=== PATIENT | male | born 1990 | race Caucasian/White ===

== ENCOUNTER 2017-03-21 06:46 | Day surgery (SDC) | payer OTHER ==
--- NOTE | 2017-03-08 16:10 | HP ---
Amended report to enter cosigning doctor. PREOPERATIVE HISTORY AND PHYSICAL: DATE OF ADMISSION/SURGERY: 03/21/17 DATE OF OFFICE VISIT: 03/08/17 ATTENDING SURGEON: Sherie Mendoza MD* (dictated by KRISTA Fabian). PROCEDURES: Right knee anterior cruciate ligament reconstruction, possible meniscus repair, bone-patellar tendon-bone autograft. CHIEF COMPLAINT: Right knee pain and instability. HISTORY OF PRESENT ILLNESS: Tom is a 26-year-old male who presents to the clinic for right knee pain and instability. He has had a prior ACL reconstruction and partial meniscectomy. The patient states he continues to have pain and instability that effects his daily activity. He also has catching and locking. He has failed conservative measures and therefore agreed to undergo right knee anterior cruciate ligament reconstruction, possible meniscus repair, bone-patellar tendon-bone autograft. PAST MEDICAL HISTORY: No current problems. PAST SURGICAL HISTORY: 1. Right knee ACL surgery. 2. Right knee meniscectomy. MEDICATIONS: No active medications. ALLERGIES: No known drug allergies. FAMILY HISTORY: Positive for diabetes, hypertension, and breast cancer. SOCIAL HISTORY: He denies tobacco use. He reports occasional alcohol consumption. He is a PhD in Astronomy student. REVIEW OF SYSTEMS: A 14-point review of systems was reviewed with the patient. Positive for current complaint, otherwise negative. Denies fevers, chills, night sweats. Denies shortness of breath. Denies history of DVT or PE. Denies bleeding disorders. PHYSICAL EXAMINATION GENERAL: Well-developed, well-nourished 26-year-old male, in no acute distress. Alert and oriented x3. Appropriate mood and affect. VITALS: Height 62, weight 161. Blood pressure 108/70, respiratory rate 14, temperature 95.8. BMI 29.4. HEENT: Normocephalic, atraumatic. PERRLA. Throat clear. NECK: Supple. PULMONARY: Lungs are clear to auscultation bilaterally. No wheezing, rhonchi, or rales. CARDIO: Regular rate and rhythm. S1 and S2. No murmurs, gallops, or rubs. No edema. ABDOMEN: Positive bowel sounds. Soft, nontender. MUSCULOSKELETAL: Right lower extremity, skin is intact. No warmth or erythema. Mild effusion. Range of motion is 0 to 130. 2A Olesya. Tender medial joint line. Pain with deep flexion. Positive Winston. Stable varus and valgus stress. +2 dorsalis pedis pulse. Sensation is intact to light touch distally. NEURO: Alert and oriented x3. Cranial nerves grossly intact. Sensation is intact to light touch. STUDIES: MRI, medial meniscus tear, some lateral meniscus tear and ACL in a nonanatomic position. IMPRESSION: Anterior cruciate ligament sprain, medial meniscus tear, lateral meniscus tear. PLAN: The patient is scheduled to undergo a right knee anterior cruciate ligament reconstruction, possible meniscus repair, bone-patellar tendon-bone autograft with Dr. Mendoza on 03/21/17. He will follow up 8 days postop for followup and suture removal. Percocet was sent to his pharmacy for postop pain management. KRISTA FABIAN [id number]/[facility] #: [id number] KRISTY
[~2017-03-21 06:46] MED LIST: Buffered Lidocaine 0.9% SYRIN* 5 ML/SYR SYRINGE INTRADERM ONE; Famotidine IV* 10 MG/ML 2 ML (20 mg) IV ONE; Famotidine IV* 10 MG/ML 2 ML (20 mg) ONE
[2017-03-21] MEDS ORDERED: Bupivacaine 0.25% SDV* 30 ML ONE (06:53)
[2017-03-21] MEDS ORDERED: Lidocaine 1% MPF wEPI 200,000* 30 ML SDV ONE (06:54)
[2017-03-21] MEDS ORDERED: ceFAZolin 2 GM PREMIX (*) 50 ML IVPB ONE (07:09)
[2017-03-21] MEDS ORDERED: fentaNYL* 50 MCG/ML 2 ML VIAL (100 MCG VIAL) ONE ×3 (07:47→09:23)
[2017-03-21] MEDS ORDERED: Midazolam* 1 MG/ML 5 ML VIAL (5 MG) ONE (07:47)
[2017-03-21] MEDS ORDERED: Succinylcholine* 20 MG/ML 10 ML VIAL ONE (08:07)
[2017-03-21] MEDS ORDERED: Ondansetron INJ* 2 MG/ML VIAL ONE (08:07)
[2017-03-21] MEDS ORDERED: Propofol* 10 MG/ML 20 ML BTL IV PUSH ONE ×2 (08:07→10:58)
[2017-03-21] MEDS ORDERED: Ketorolac INJ* 30 MG/ML 1 ML VIAL ONE (08:07)
[2017-03-21] MEDS ORDERED: Dexamethasone IV* 4 MG/ML 1 ML (4 MG) ONE (08:07)
[2017-03-21] MEDS ORDERED: Lidocaine 2% PF * 5 ML VIAL ONE (08:07)
[2017-03-21] MEDS ORDERED: Acetaminophen TAB* 325 MG PO PRN (08:56)
[2017-03-21] MEDS ORDERED: DiMENhydriNATE IV* 50 MG/ML VIAL IV PUSH PRN (08:56)
[2017-03-21] MEDS ORDERED: HYDROmorphone INJ* 1 MG/ML CARPUJECT SYRINGE IV PRN (08:56)
[2017-03-21] MEDS ORDERED: oxyCODONE TAB* 5 MG TAB PO PRN (08:56)
[2017-03-21] MEDS ORDERED: HYDROmorphone INJ* 1 MG/ML CARPUJECT SYRINGE ONE ×2 (10:34→11:32)
[2017-03-21] MEDS ORDERED: oxyCODONE/Acetamin 5/325 MG* TAB ONE (11:32)
[2017-03-21 12:03] VITALS: BP 125/82
--- NOTE | 2017-03-22 02:17 | OP ---
DATE OF OPERATION: 03/21/17 [facility] DATE OF : [birth year] SURGEON: Sherie Mendoza MD EMERGENCY DEPARTMENT CLINICIAN: KRISTA Wu. An marketing support assistant was needed for the entirety of case to help with positioning, retraction, and was utilized throughout all portions of the case. ANESTHESIOLOGIST: Dr. Reza. ANESTHESIA: General. PRE-OP DIAGNOSIS: Right knee ACL insufficiency with medial meniscal tear. POSTOP DIAGNOSES: Right knee ACL insufficiency with medial meniscal tear, plica excision. OPERATIVE PROCEDURE: Right knee arthroscopy with: 1. Plica excision. 2. Partial medial meniscectomy and then meniscal rasping. 3. Revision ACL reconstruction with BTB autograft. 4. Removal of Kelly staple. 5. Removal of intraarticular foreign bodies. COMPLICATIONS: None. INDICATIONS: Tom Velazquez is a 26-year-old male who has followed with me for a little more than a year for his knee pain and instability. He initially was diagnosed with a medial meniscus tear. At that time, I told him his ACL was insufficient and this is why he had a meniscal tear. We did have a previous surgery where we did a meniscal repair, but he re-tore that. He is having persistent symptoms. I explained to him that his knee is, by definition, unstable, and he had a 2A Olesay. We talked about options including partial meniscectomy versus reconstruction of the ACL. He thought his options over and then decided to proceed with revision ACL. Risks and benefits were discussed in length and included, but not limited to bleeding, infection, damage to nerves , vessels, surrounding structures, wound nonhealing, persistent pain, need for surgery, scarring, stiffness, fracture, incomplete relief of symptoms, need for further surgery, risk of arthritis, DVT, and risk of anesthesia. DESCRIPTION OF PROCEDURE: The patient was greeted in the preoperative area by the attending surgeon. Correct extremity was marked and consent was confirmed. The patient was then brought back to the operating suite where he was placed in the supine position on the operating table. He then underwent general anesthesia with endotracheal intubation, after which the patient was positioned appropriately on the bed. The knee was placed in 90 degrees and a post was positioned, as well as the small 10-pound johnson bag. An unsterile tourniquet was placed high on the proximal thigh. The right leg was prepped and draped in the usual sterile fashion beginning with chlorhexidine soap, scrub, and alcohol wipe and a final prep with ChloraPrep. After appropriate surgical pause indicating site, side, procedure, and administration of antibiotics, the knee was intraarticularly injected with 1% lidocaine with epi. The Esmarch was used to exsanguinate the limb and the tourniquet was inflated to 250 mmHg. The midline incision, centered over the patellar tendon, was then made sharply with a 15-blade. Soft tissue was carefully dissected to protect and keep flaps for later closure. The paratenon was identified and sharply incised and again protected for later flap closure. The center third of the tendon was then harvested using 10 blade. The bone blocks were harvested using the sagittal saw and then loosened using a curved osteotome. The bone block along the femur was sized to be 9 x 25 mm and the femur was 10 x 30 mm. The graft was prepared on the back table by the attending surgeon using #5 Ethibond with a stay suture in the tibial aspect of the tendon. Meanwhile, the marketing support assistant closed the tendon with 0 Vicryl in an interrupted fashion. The graft was then wrapped in saline-soaked gauze and left on the back table. Attention was directed to the arthroscopy portion. A lateral portal was made in an outside-in fashion. The scope was brought into the joint. Joint was examined. The patellofemoral joint had grade 1 changes. The trochlea had grade 0 to 1 changes. The medial and lateral gutter were intact without any loose body. The scope was brought into the notch. The medial femoral condyle had evidence of fissuring that was apparent and a small amount of fraying. There was a moderate size plica. This was removed using the shaver and electrocautery device. The ACL graft was palpated and probed and found to be incompetent and in a non-anatomic position. The medial compartment was examined. The medial meniscus had an unstable tear. The previous repair was still intact, sutures were identified and this was a flap of tissue that was unstable. Lenny and biters were then used to debride this back. The meniscus was then probed posterior to this tear. There was a small amount of give, a decision was made to rasp this and not put a stitch as there was concern that the tissue quality may not be good. A small chondroplasty of the medial femoral condyle was done at this point to remove the unstable fraying. There was significant softening of the tibial surface. The attention was directed to lateral compartment, which was intact and the previous meniscectomy was evident and was not worsened. The scope was brought to the medial compartment and the medial meniscus was rasped using the meniscus rasp to allow for aggravation and scarring of the meniscus. Attention was directed to the notch. Previous ACL was then removed using biters and lenny. The tunnel was placed anterior and superior. Directly superior, there were FiberWire sutures that were present that were then removed for removal of foreign bodies. The sutures were then carefully removed so as to not cause any irritation nor to run free. The electrocautery device was used to expose and skeletonize the lateral femoral condyle. There was an irregular spur that was present. The sánchez was used to do a small notchplasty with care as this was very poor quality tissue and poor quality of bone. The bone appeared to be yellow also. After this was removed, the notch was visualized more carefully. The starting awl was used to kiya a director ship hole for reference point of where the final tunnel should be. The scope was positioned in the medial portal and visualized. The attention was directed to the tibial portion. The previous tibial graft was secured using a Kelly staple, which was in the path of the tunnel, and a decision was made to remove this. The osteotomes were gently used to free the staple and it was removed in its entirety from dense bone that was present. Once this was done, the tip-to- tip guide was placed at around 55 degrees and the appropriate tunnel was drilled again, this incorporated his previous tunnel. The graft had to be removed and any excess bone was saved for later bone grafting. The tunnel was then rasped and shaver was used to remove any of the previous hamstring graft that was present in that tunnel. Once the tunnel was completely clear and void, the carrot was used to prevent fluid egress and attention directed to the femoral tunnel. A Beath pin was then drilled through the center of the tunnel and the size 9 mm low-profile reamer was used to drill the tunnel to a depth of a 27 mm, all excess bony debris was removed. The tunnel was then notched using a plater helper. A #5 Ethibond suture was then passed through the end of the Beath pin in a retrograde fashion to the tibial tunnel. The graft was then brought to back table, then passed up carefully under the arthroscopic visualization and well-seated into the tunnel. There was concern that the lateral cortex had been violated and therefore, with careful tension placed on the suture and the nitinol wire, the size 7 x 25 mm screw was placed. We placed this carefully with excellent purchase and a good bite, with planning for backup fixation if need be. The knee was then taken to full extension. There was no evidence of impingement. The knee was then cycled 20 times, with no movement of the femoral tunnel and decision was made to not have to back it up. The images were taken in between any portion of the case, so that there was no concern about any loss of fixation of the tunnel. Knee was taken through full extension. There was a small cartilage bubble on the very medial aspect of the patella, which had grade 2 changes. A small chondroplasty was done of this using the shaver. The tibial tunnel was addressed and the nitinol wire was placed in the tunnel and a size 9 x 25 mm SoftSilk screw was used to secure this. This had a good purchase. Decision was to back this up over a post and washer. The Olesya was assessed and was found to be stable. The 3/2 drill bit was used to drill bicortically into the tibia. The appropriate length screw and washer were then placed, the sutures were then tied over with tension on the graft to allow for backup fixation of the tibial tunnel. The scope was brought back to the joint and the ACL was found to be in good position. Olesya was assessed again and found to be stable. The wounds were copiously irrigated and the excess bone was placed in patellar defect and oversewn with 0 Vicryl. The paratenon was closed with 2-0 Vicryl in running fashion. The skin was closed with layers of 2 -0 Vicryl and 3-0 Monocryl. Sterile dressings were applied. The knee was intra -articularly injected with 0.25% Marcaine plain and along the incisions. Cryo/ Cuff was placed as well as hinged knee brace with 0 to 90 degrees motion. He was awoken from anesthesia and transferred to PACU in stable condition. POSTOPERATIVE PLAN: He will be nonweightbearing for 4 weeks. He will be range of motion 0 to 90 degrees. He will start therapy at the end of the week. He will be discharged with pain medication, antibiotics, as well as aspirin. I will see the patient back in 6 to 8 days. [id number]/[facility] #: [id number] MTDD
--- NOTE | 2017-03-23 10:09 | RAD ---
INDICATION: Right knee. No other history is provided. COMPARISONS: MRI dated January 26, 2017 TECHNIQUE: Fluoroscopy was provided for a surgical procedure. Total fluoroscopy time is: 5 seconds FINDINGS: Spot images demonstrate post surgical change to the distal femur and proximal tibia IMPRESSION: FLUOROSCOPY WAS PROVIDED FOR A SURGICAL PROCEDURE CPT II Codes: 6045F
== END 2017-03-21 12:40 | disposition home or self-care (01) ==
LOC: OREAST 06:46
PROVIDERS: ATTEND Orthopaedic Surgery
DX: M23.51 Chronic instability of knee, right knee (principal); S83.511D Sprain of anterior cruciate ligament of right knee, subsequent encounter; M23.203 Derangement of unspecified medial meniscus due to old tear or injury, right knee; X58.XXXD Exposure to other specified factors, subsequent encounter; Y92.9 Unspecified place or not applicable
CPT/HCPCS: 76000; A9270-GY; C1713; C1776; J0330; J0690; J1100; J1170; J1885; J2001; J2250; J2405; J2704; J3010

== ENCOUNTER 2018-02-20 08:10 | Day surgery (SDC) | payer OTHER ==
[~2018-02-20 08:10] MED LIST changes: -Famotidine IV* 10 MG/ML 2 ML (20 mg) ONE; +Lidocaine 1% MPF wEPI 200,000* 30 ML SDV ONE; +ROPIVACAINE 5 MG/ML 30 ML BTL (0.5%) ONE
[2018-02-20] MEDS ORDERED: ceFAZolin 2 GM in NS PREMIX(*) 2 GM/100 ML BAG IVPB ONE (08:23)
[2018-02-20] MEDS ORDERED: Famotidine IV* 10 MG/ML 2 ML (20 mg) ONE (08:24)
[2018-02-20] MEDS ORDERED: Midazolam* 1 MG/ML 5 ML VIAL (5 MG) ONE (08:27)
[2018-02-20] MEDS ORDERED: fentaNYL* 50 MCG/ML 2 ML VIAL (100 MCG VIAL) ONE ×2 (08:27→09:14)
[2018-02-20] MEDS ORDERED: Ketorolac INJ* 30 MG/ML 1 ML VIAL ONE (09:14)
[2018-02-20] MEDS ORDERED: Ondansetron INJ* 2 MG/ML VIAL ONE (09:14)
[2018-02-20] MEDS ORDERED: Dexamethasone IV* 4 MG/ML 1 ML (4 MG) ONE (09:14)
[2018-02-20] MEDS ORDERED: Propofol* 10 MG/ML 20 ML BTL IV PUSH ONE (09:14)
[2018-02-20] MEDS ORDERED: Lidocaine 2% PF * 5 ML VIAL ONE (09:14)
[2018-02-20] MEDS ORDERED: DiMENhydriNATE IV* 50 MG/ML VIAL IV PUSH PRN (09:50)
[2018-02-20] MEDS ORDERED: Acetaminophen TAB* 325 MG PO PRN (09:50)
[2018-02-20] MEDS ORDERED: oxyCODONE TAB* 5 MG TAB PO PRN (09:50)
[2018-02-20] MEDS ORDERED: HYDROmorphone INJ1* 1 MG/ML SYRINGE IV PRN (09:50)
[2018-02-20] MEDS ORDERED: Naloxone* 0.4 MG/ML 1 ML VIAL IV PRN (09:50)
[2018-02-20 10:05] VITALS: BP 117/94
--- NOTE | 2018-02-20 11:50 | OP ---
CC: PCP OPERATIVE REPORT: DATE OF OPERATION: 02/20/18 DATE OF : [birth year] ATTENDING SURGEON: Sherie Mendoza MD GRAPHICS MANAGER: KRISTA Wu An assistant quality manager was needed for the entirety of the case to help with retraction and was utilized throughout all portions of the case. ANESTHESIOLOGIST: Shellie Reza MD ANESTHESIA: General. PRE-OP DIAGNOSIS: Right knee status post revision anterior cruciate ligament reconstruction with retained painful hardware. POST-OP DIAGNOSIS: Right knee status post revision anterior cruciate ligament reconstruction with retained painful hardware. OPERATIVE PROCEDURE: 1. Right knee arthroscopy with diagnostic arthroscopy with a partial lateral meniscectomy and intact ACL. 2. Open removal of hardware from anteromedial tibia. INDICATIONS: Tom Velazquez is a 27-year-old male, who underwent revision ACL reconstruction with partial medial meniscectomy. On 03/31/17, he was borderline compliant and had some issues with his knee. We are treating him conservatively. He is back to physical therapy. He felt like his knee was stable again. He does notice that whenever he runs, he has a lot of pain where the hardware was, as a backup fixation, for his tibial tunnel. We discussed the risks and benefits of surgery. Risks include but not limited to bleeding; infection; damage to nerves, vessels, surrounding structures; wound nonhealing; persistent pain; need for further surgery; scarring; stiffness; incomplete relief of symptoms; risk of anesthesia. COMPLICATIONS: None. ESTIMATED BLOOD LOSS: Minimal. TOURNIQUET TIME: 0 minutes. DESCRIPTION OF PROCEDURE: The patient was greeted in the preoperative area by the attending surgeon. Correct extremity was marked, consent was confirmed. The patient was brought back to the operating suite where he was placed in the supine position. He then underwent general anesthesia and LMA intubation. An unsterile tourniquet was placed high on the proximal thigh with lateral post positioned. The right leg was prepped and draped in the usual sterile fashion with a pre-scrub of chlorhexidine soap and alcohol wipe and a final prep with ChloraPrep. After appropriate surgical pause indicating site, side, procedure, and administration of antibiotics, the knee was intra-articularly injected with 1% lidocaine with epi. The anterolateral portal was made sharply with an 11 blade. Scope was introduced into the joint. Joint was examined. There was some fraying of the lateral femoral condyle and the patellofemoral joint was intact with grade 0 to 1 changes. Medial compartment had grade 0 to 1 changes and the medial meniscus had evidence of partial meniscectomy with no new changes. ACL was intact and the lateral compartment was examined. There were grade 1 and 2 changes to the lateral compartment. There was mild fraying of the lateral root of the meniscus, which was debrided back using the shaver. After the diagnostic portion was completed and the ACL was confirmed to be intact, attention was directed to the tibial screw. Through a separate incision over the previously placed incision over the anteromedial tibia, soft tissues were carefully dissected to expose the screw head, which was removed in its entirety. The washer was then also removed. The suture knots were then cut out and removed so that there were no palpable nodules that would be painful. Rongeur was used to debride in a soft tissue to allow for good bony bleeding bed. The wounds were then copiously irrigated with sterile saline including the portals. Portals were closed with 3-0 nylon. The skin was closed in layers of 2-0 Vicryl and 3-0 Monocryl. Sterile dressings were applied. The knee was injected superficially and intra-articularly with 0.25% Marcaine plain. Sterile dressings were applied. He was awoken from anesthesia and transferred to PACU in stable condition. POSTOPERATIVE PLAN: He will be nonweightbearing. He will be discharged on pain medications and antibiotics due to this being a revision scope. I will see the patient back in 10 to 14 days. [id number]/[facility] #: [id number] KRISTY
== END 2018-02-20 10:30 | disposition home or self-care (01) ==
LOC: OREAST 08:10
PROVIDERS: ATTEND Orthopaedic Surgery
DX: T84.84XA Pain due to internal orthopedic prosthetic devices, implants and grafts, initial encounter (principal); Y83.1 Surgical operation with implant of artificial internal device as the cause of abnormal reaction of the patient, or of later complication, without mention of misadventure at the time of the procedure; S83.281A Other tear of lateral meniscus, current injury, right knee, initial encounter; X50.3XXA Overexertion from repetitive movements, initial encounter; Y92.9 Unspecified place or not applicable; J30.2 Other seasonal allergic rhinitis; K58.9 Irritable bowel syndrome, unspecified
CPT/HCPCS: 88300; 88304; J0690; J1100; J1885; J2001; J2250; J2405; J2704; J2795; J3010

== ENCOUNTER 2018-04-10 14:24 | Emergency (ER) | payer OTHER ==
[2018-04-10 14:43] VITALS: BP 132/92
--- NOTE | 2018-04-10 15:48 | UC ---
Headache HPI - HPI Summary HPI Summary: 27-year-old male comes in with a chief complaint of a headache. The symptoms started on April 07, 2018 1 the patient was at work. Initially he had blurred vision. Then the vision in his right eye went blind. He states he could not see his right hand. No loss of vision in the right eye lasted 20-30 minutes. He denied any weakness or numbness or difficulty with speech otherwise. While the vision was blind in the right eye he started with a headache that became an 8-9 out of 10 in intensity. He took ibuprofen which did help some with the headache. He went home and fell asleep. When he woke up his right face was numb and this lasted about 30 minutes. Since then he's been taking ibuprofen and resting in the headache has improved down to about a 3 out of 10 now however he comes in because the headache continues. The headache does not wake him from sleep but he does wake up with a headache. There is a family history of migraines both his sister and his father have migraines. He had migraines 15 years ago but he does not remember any vision changes with his migraines. He has not had a migraine in 15 years. No fevers or chills or neck pain no weakness or numbness vision problems or difficulties with speech at this time. - History Of Current Complaint Chief Complaint: UCHeadache Stated Complaint: HEADACHE Time Seen by Provider: 04/10/18 15:30 Pain Intensity: 2 - Allergies/Home Medications Allergies/Adverse Reactions: Allergies Allergy/AdvReac Type Severity Reaction Status Date / Time ENVIRONMENTAL/SEASONAL Allergy RUNNY Uncoded 04/10/18 14:43 HAYFEVER NOSE, ITCHY WATERY EYES Home Medications: Home Medications Ibuprofen 400 mg PO ONCE PRN 04/10/18 [History Confirmed 04/10/18] PMH/Surg Hx/FS Hx/Imm Hx Neurological History: Migraine - Surgical History Surgical History: Yes Surgery Procedure, Year, and Place: 2007 RIGHT ACL REPAIR, [facility]. TUBES IN EARS . RIGHT KNEE MENISCUS REPAIR 2016. ACL REPAIR AND MENISCUS RIGHT KNEE 2017 - Family History Known Family History: Positive: Other - SISTER AND FATHER WITH MIGRAINES - Social History Alcohol Use: Occasionally Substance Use Type: None Smoking Status (MU): Never Smoked Tobacco Review of Systems Constitutional: Negative Skin: Negative Eyes: Other - SEE HPI ENT: Negative Respiratory: Negative Cardiovascular: Negative Gastrointestinal: Negative Motor: Negative Neurovascular: Negative Musculoskeletal: Negative Neurological: Other - SEE HPI Psychological: Negative Is Patient Immunocompromised?: No All Other Systems Reviewed And Are Negative: Yes Physical Exam Triage Information Reviewed: Yes Appearance: Well-Appearing, No Pain Distress, Well-Nourished Vital Signs: Initial Vital Signs Temp 98.4 F 04/10/18 14:39 Pulse 79 04/10/18 14:39 Resp 18 04/10/18 14:39 BP 132/92 04/10/18 14:39 Pulse Ox 98 04/10/18 14:39 Vital Signs Reviewed: Yes Eye Exam: Normal Eyes: Positive: Conjunctiva Clear ENT Exam: Normal ENT: Positive: TMs normal. Negative: Nasal congestion Neck exam: Normal Neck: Positive: Supple Respiratory Exam: Normal Respiratory: Positive: Lungs clear, Normal breath sounds, No respiratory distress Cardiovascular: Positive: RRR Musculoskeletal Exam: Normal Musculoskeletal: Positive: Strength Intact, ROM Intact Neurological Exam: Normal Neurological: Positive: Alert, Muscle Tone Normal, Other: - No facial numbness or arm numbness or leg numbness. Face is symmetric. No weakness in the face of the arms or legs. No difficulties with speech or vision. Psychological Exam: Normal Psychological: Positive: Age Appropriate Behavior Skin Exam: Normal Headache Course/Dx - Course Course Of Treatment: Order Information: CT BRAIN WO. Accession Number: [id number]. CPT: 07788. INDICATION: Atraumatic headache x3 days. COMPARISON : None. TECHNIQUE: Contiguous axial sections of the brain were obtained from the skull base to the. vertex without contrast. FINDINGS: The ventricles, cisterns and sulci are within normal limits. The beckham-white matter differentiation is adequately maintained and there is no sulcal. effacement. No significant focal abnormality or mass effect is present. There is no evidence for intracranial hemorrhage. No significant focal osseous abnormality is present. The visualized portion of the paranasal sinuses appear clear. The mastoid air cells are well aerated bilaterally. IMPRESSION: Normal CT of the brain. . < Electronically signed by Juan Francisco James MD in OV> 04/10/18 1620. I discussed the case with the neurologist on-call Dr. RODRÍGUEZ. ABCD2 score is 0. We discussed the patient's case. At this time Dr. Adrian recommends a head CT. With an ABCD 2 score of 0 and with the patient's and family history of migraine this is consistent with migraine. The plan will be a follow-up with neurology in the office. If the patient is any neurologic symptoms or worsening of the headache recurs and abnormality on the CT the patient will go to the emergency department. I discussed the CT results with the patient. - Differential Dx/Diagnosis Provider Diagnoses: HEADACHE. TRANSIENT PARESTHESIA AND VISION LOSS Discharge - Sign-Out/Discharge Documenting (check all that apply): Patient Departure All imaging exams completed and their final reports reviewed: Yes - Discharge Plan Condition: Stable Disposition: HOME Patient Education Materials: Acute Headache (ED), Migraine Headache (ED), Blurred Vision (ED) Referrals: [facility] [Outside] Jose Luis Harp MD [Medical Doctor] - Additional Instructions: FOLLOW UP WITH NEUROLOGY. GO TO THE EMERGENCY DEPARTMENT FOR ANY WORSENING OF YOUR CONDITION; WEAKNESS, NUMBNESS, DIFFICULTY WITH VISION OR SPEECH, PAIN OR QUESTIONS OR CONCERNS. - Billing Disposition and Condition Condition: STABLE Disposition: Home
--- NOTE | 2018-04-10 16:24 | RAD ---
INDICATION: Atraumatic headache x3 days COMPARISON: None. TECHNIQUE: Contiguous axial sections of the brain were obtained from the skull base to the vertex without contrast. FINDINGS: The ventricles, cisterns and sulci are within normal limits. The beckham-white matter differentiation is adequately maintained and there is no sulcal effacement. No significant focal abnormality or mass effect is present. There is no evidence for intracranial hemorrhage. No significant focal osseous abnormality is present. The visualized portion of the paranasal sinuses appear clear. The mastoid air cells are well aerated bilaterally. IMPRESSION: Normal CT of the brain.
== END 2018-04-10 16:49 | disposition home or self-care (01) ==
LOC: UCEAST 14:24
DX: R51 Headache (principal); R20.2 Paresthesia of skin; H54.7 Unspecified visual loss; J30.2 Other seasonal allergic rhinitis
CPT/HCPCS: 70450; 99211; G0463